=== PATIENT | male | born 1985 | race Caucasian/White ===

== ENCOUNTER 2017-04-14 08:46 | Emergency (ER) | payer MEDICAID ==
--- NOTE | 2017-04-14 09:37 | RAD ---
LEFT CLAVICLE 2 VIEWS: Date: 04/14/17 INDICATION: Pain. FINDINGS: Distracted fracture at the mid shaft left clavicle. IMPRESSION: Distracted, mildly displaced, mid shaft left clavicular fracture. POS: [facility]
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
[2017-04-14] MEDS ORDERED: HYDROcodone/Acetaminophen 10/325 mg Tablet ONE (10:00)
== END 2017-04-14 10:19 | disposition home or self-care (01) ==
LOC: ERS 08:46
DX: S42.022A Displaced fracture of shaft of left clavicle, initial encounter for closed fracture (principal); I10 Essential (primary) hypertension; F17.220 Nicotine dependence, chewing tobacco, uncomplicated; V49.9XXA Car occupant (driver) (passenger) injured in unspecified traffic accident, initial encounter
CPT/HCPCS: 71010

== ENCOUNTER 2017-04-15 09:32 | Emergency (ER) | payer OTHER ==
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
== END 2017-04-15 11:27 | disposition home or self-care (01) ==
LOC: ERS 09:32
DX: S92.144A Nondisplaced dome fracture of right talus, initial encounter for closed fracture (principal); S42.002A Fracture of unspecified part of left clavicle, initial encounter for closed fracture; I10 Essential (primary) hypertension; F17.220 Nicotine dependence, chewing tobacco, uncomplicated; Z79.891 Long term (current) use of opiate analgesic; Z79.899 Other long term (current) drug therapy; V89.2XXA Person injured in unspecified motor-vehicle accident, traffic, initial encounter
CPT/HCPCS: 29515